=== PATIENT | male | born 1955 | race Caucasian/White ===

== ENCOUNTER 2018-07-26 11:48 | Observation (INO) | payer SELFPAY ==
--- NOTE | 2018-07-26 12:28 | ED.PDOC ---
History of Present Illness - General Chief Complaint: Cardiovascular Problem Stated Complaint: Elevated heart rate Time Seen by Provider: 07/26/18 12:09 Source: patient Exam Limitations: no limitations - History of Present Illness Initial Comments: Patient presents from clinic after it was found out that he was in atrial fibrillation. He denies any history of atrial fibrillation or any other medical history. He denies chest pain or dyspnea. He is an occasional smoker of cigarattes, averaging less than a pack per week. He is asymptomatic upon arrival to the E.D. The clinic visit was his first in 5 years and he went there without any physical complaints. Timing/Duration: unsure Severity: moderate Improving Factors: nothing Worsening Factors: nothing Associated Symptoms: denies symptoms Allergies/Adverse Reactions: Allergies NO KNOWN ALLERGY Allergy (Unverified 07/23/14 12:04) Home Medications: Ambulatory Orders Lisinopril & Hydrochlorothiazi [Lisinopril/Hctz 20-12.5 mg] 1 tab PO DAILY 07/23/14 Review of Systems - Review of Systems Constitutional: States: no symptoms reported EENTM: States: no symptoms reported Respiratory: States: no symptoms reported Cardiology: States: see HPI Gastrointestinal/Abdominal: States: no symptoms reported Genitourinary: States: no symptoms reported Musculoskeletal: States: no symptoms reported Skin: States: no symptoms reported Neurological: States: no symptoms reported Endocrine: States: no symptoms reported Hematologic/Lymphatic: States: no symptoms reported Past Medical History (General) - Patient Medical History Hx Congestive Heart Failure: No Hx Diabetes: No Family Medical History - Family History Father Family History: No Known Living Status: Physical Exam - Physical Exam General Appearance: Alert Eye Exam: bilateral normal Ears, Nose, Throat: normal ENT inspection Neck: non-tender, full range of motion, supple Respiratory: lungs clear, normal breath sounds Cardiovascular/Chest: normal peripheral pulses, tachycardia, irregularly irregular Gastrointestinal/Abdominal: normal bowel sounds, non tender, soft Back Exam: normal inspection, no CVA tenderness Neurologic: no motor/sensory deficits, alert, normal mood/affect, oriented x 3 Skin Exam: normal color Lymphatic: no adenopathy Progress - Progress Progress: 07/26/18 16:14 Laboratory Tests 07/26/18 07/26/18 07/26/18 12:10 12:10 12:10 WBC 6.1 RBC 4.73 Hgb 15.9 Hct 47.4 MCV 100.1 H MCH 33.7 H MCHC 33.6 RDW 13.7 Plt Count 115 L MPV 10.3 Absolute Neuts (auto) 4.00 Absolute Lymphs (auto) 1.30 Absolute Monos (auto) 0.80 Absolute Eos (auto) 0.00 Absolute Basos (auto) 0.10 Neutrophils % 64.6 Lymphocytes % 21.5 Monocytes % 12.5 H Eosinophils % 0.6 L Basophils % 0.8 Normal RBC Morphology Plts poonam decreased PT 10.3 INR 1.03 PTT (SP) 28.9 D-Dimer, Quantitative Sodium 134 L Potassium 4.1 Chloride 101 Carbon Dioxide 21 Anion Gap 16.1 BUN 18 Creatinine 0.76 BUN/Creatinine Ratio 23.7 H Random Glucose 108 H Serum Osmolality 270.7 L Calcium 8.9 Magnesium Total Bilirubin 1.0 AST 42 ALT 36 Alkaline Phosphatase 81 Creatine Kinase 115 CK-MB (CK-2) 4.5 H CK-MB (CK-2) % 3.91 H Troponin I < 0.02 B-Natriuretic Peptide 163.0 H Serum Total Protein 7.8 Albumin 4.4 Globulin 3.4 Albumin/Globulin Ratio 1.3 TSH Thyroxine (T4) Urine Color Urine Appearance Urine pH Ur Specific Roach Urine Protein Urine Glucose (UA) Urine Ketones Urine Blood Urine Nitrite Urine Bilirubin Urine Urobilinogen Ur Leukocyte Esterase Urine RBC Urine WBC Ur Epithelial Cells Urine Bacteria Urine Opiates Screen Urine Barbiturates Ur Phencyclidine Scrn U Amphetamin/Meth Scrn U Benzodiazepines Scrn U Cocaine Metab Screen U Cannabinoids Screen 07/26/18 07/26/18 07/26/18 12:10 12:10 12:30 WBC RBC Hgb Hct MCV MCH MCHC RDW Plt Count MPV Absolute Neuts (auto) Absolute Lymphs (auto) Absolute Monos (auto) Absolute Eos (auto) Absolute Basos (auto) Neutrophils % Lymphocytes % Monocytes % Eosinophils % Basophils % Normal RBC Morphology PT INR PTT (SP) D-Dimer, Quantitative 0.31 Sodium Potassium Chloride Carbon Dioxide Anion Gap BUN Creatinine BUN/Creatinine Ratio Random Glucose Serum Osmolality Calcium Magnesium 1.8 Total Bilirubin AST ALT Alkaline Phosphatase Creatine Kinase CK-MB (CK-2) CK-MB (CK-2) % Troponin I B-Natriuretic Peptide Serum Total Protein Albumin Globulin Albumin/Globulin Ratio TSH 1.75 Thyroxine (T4) 8.81 Urine Color Urine Appearance Urine pH Ur Specific Roach Urine Protein Urine Glucose (UA) Urine Ketones Urine Blood Urine Nitrite Urine Bilirubin Urine Urobilinogen Ur Leukocyte Esterase Urine RBC Urine WBC Ur Epithelial Cells Urine Bacteria Urine Opiates Screen Urine Barbiturates Ur Phencyclidine Scrn U Amphetamin/Meth Scrn U Benzodiazepines Scrn U Cocaine Metab Screen U Cannabinoids Screen 07/26/18 07/26/18 12:47 12:50 WBC RBC Hgb Hct MCV MCH MCHC RDW Plt Count MPV Absolute Neuts (auto) Absolute Lymphs (auto) Absolute Monos (auto) Absolute Eos (auto) Absolute Basos (auto) Neutrophils % Lymphocytes % Monocytes % Eosinophils % Basophils % Normal RBC Morphology PT INR PTT (SP) D-Dimer, Quantitative Sodium Potassium Chloride Carbon Dioxide Anion Gap BUN Creatinine BUN/Creatinine Ratio Random Glucose Serum Osmolality Calcium Magnesium Total Bilirubin AST ALT Alkaline Phosphatase Creatine Kinase CK-MB (CK-2) CK-MB (CK-2) % Troponin I B-Natriuretic Peptide Serum Total Protein Albumin Globulin Albumin/Globulin Ratio TSH Thyroxine (T4) Urine Color Yellow Urine Appearance Clear Urine pH 6.5 Ur Specific Roach 1.015 Urine Protein Negative Urine Glucose (UA) Negative Urine Ketones Negative Urine Blood Negative Urine Nitrite Negative Urine Bilirubin Negative Urine Urobilinogen 0.2 Ur Leukocyte Esterase Negative Urine RBC 0 Urine WBC 0 Ur Epithelial Cells 0 Urine Bacteria 0 Urine Opiates Screen Negative Urine Barbiturates Negative Ur Phencyclidine Scrn Negative U Amphetamin/Meth Scrn Negative U Benzodiazepines Scrn Negative U Cocaine Metab Screen Negative U Cannabinoids Screen Negative No evidence of acute RI. The patient's heart rate came down to the 70s with Cardizem 10 mg IV x one followed by 15 mg IV x one. He stayed at an irregular rhythm but normal rate for about an hour but then started to trend up again. I spoke with Dr. Garland and it was mutually decided to give one more bolus of Ca rdizem and admit the patient for transition to oral medication and anticoagulation. The patient was agreeable to staying overnight. Departure - Departure Clinical Impression: Atrial fibrillation Disposition: Admit Patient Condition: Good Departure Forms: ED Discharge - Pt. Copy, Patient Portal Self Enrollment Instructions: DI for Chest Pain Diet: resume usual diet Activity: increase activity as tolerated Referrals: Pipo Garland MD [Primary Care Provider] - 1-2 Weeks Home Medications: Ambulatory Orders Lisinopril & Hydrochlorothiazi [Lisinopril/Hctz 20-12.5 mg] 1 tab PO DAILY 07/23/14
[2018-07-26] MEDS ORDERED: diltiaZEM DRIP 125 MG in SODIUM CHLORIDE 0.9% 100ML 100 ML IVPB SCH (12:30)
--- NOTE | 2018-07-26 12:53 | RAD ---
EXAM DESCRIPTION: Chest,2 Views CLINICAL HISTORY: 62 years Male, tachycardia COMPARISON: 16 July 2014 TECHNIQUE: PA/lateral FINDINGS: Cardiac megaly is evident. The lungs are free of acute infiltrate. No pleural fluid is seen. Degenerative changes are seen in the thoracic spine. IMPRESSION: Cardiomegaly is observed without evidence of congestive heart failure. Electronically signed by: Jonathan Ramos MD 07/26/2018 12:50 PM BIOLOGICAL SCIENCE TECHNICIAN
--- NOTE | 2018-07-26 17:42 | HP ---
SUPERVISING PHYSICIAN: Pipo Garland M.D. CHIEF COMPLAINT: Routine checkup. HISTORY OF PRESENT ILLNESS: This is a 62 year-old male patient who has no significant medical history. He actually went in to see his primary care physician for routine lab work and checkup. Dr. Garland found the patient to be in rapid heart rate and an EKG was done and he was in atrial fibrillation with rapid ventricular response. The patient said he had no symptoms. He had no diaphoresis. No chest pain. No shortness of breath. He actually lifted weights this morning prior to going to his doctor's appointment and was sent to the Emergency Room by Dr. Garland. He does smoke occasionally but he smokes less than 1 pack per week. He was asymptomatic when he got to the Emergency Room. Vital signs on admission to the Emergency Room showed temperature 98.3 with heart rate 144, blood pressure 161/117. It came down later to 148/89. Respiratory rate 20, O2 sat 98% on room air. His lab had a CBC that was unremarkable with PT of 10.3, INR 1.03, PTT 28.9 and D-dimer 0.31. Sodium was slightly low at 134. His remaining electrolytes were within normal limits. Glucose was slightly high at 108. BNP was 163 and troponin was less than 0.02. TSH was 1.75, T4 was 8.81. Urinalysis was unremarkable. Urine drug screen was negative. Chest x-ray was completed and shows cardiomegaly observed without evidence of congestive heart failure. He received several doses of Cardizem IV in the Emergency Room. His rate was brought down to the 90s to 110s. He was placed in observation in the hospital. PAST MEDICAL HISTORY: 1. Hyperlipidemia. 2. Hypertension. PAST SURGICAL HISTORY: 1. Cataract surgery times 2. 2. Vasectomy. OUTPATIENT MEDICATIONS: 1. Lisinopril 20 mg at h.s. ALLERGIES: NO KNOWN DRUG ALLERGIES. FAMILY HISTORY: Positive for type 2 diabetes. SOCIAL HISTORY: He is self employed. He is . He has 2 children. He smokes less than 1 pack of cigarettes weekly. He drinks alcohol frequently, 3 to 4 drinks 3 to 4 nights per week. REVIEW OF SYSTEMS: Completely negative. PHYSICAL EXAMINATION: VITAL SIGNS: Temperature 97.8, heart rate is running between 84 and 96. Blood pressure 130/76, respiratory rate 18, O2 sat 97% on room air. GENERAL: This is a 62 year-old male patient who is lying in his hospital bed. He is in no acute distress. HEENT: Normocephalic and atraumatic. Pupils are equal and reactive. Oropharynx is clear. NECK: Supple without mass. There is no discernible jugular venous distention. RESPIRATORY: Essentially clear to auscultation bilaterally. CARDIAC: Tachycardic rate, irregular rhythm. Atrial fibrillation on the front desk monitor. GASTROINTESTINAL: Abdomen is soft, nondistended, non-tender. Bowel sounds are positive. EXTREMITIES: No clubbing, cyanosis or edema. NEUROLOGIC: He is awake, alert and oriented times three. Cranial nerves II-XII are grossly intact. LABORATORY: Labs and films are as per the History of Present Illness. ASSESSMENT: 1. Atrial fibrillation, new onset with no previous cardiac history. 2. Hypertension. 3. Hyperlipidemia. PLAN: We will place the patient in observation. I have given him an additional dose of IV Cardizem 10 mg and he will be put on immediate release Cardizem 60 mg every 6 hours. I have also put him on a PPI for ulcer prophylaxis. He has been put on Eliquis 5 mg b.i.d. for anticoagulation. I have consulted Dr. Escobar to see the patient tomorrow. Upon discharge we will go with Dr. Escobar' recommendations. I have done routine lab for in the morning. Will continue to monitor him closely and follow as needed. [facility][id number] [facility]
[2018-07-26] MEDS ORDERED: NITROGLYCERIN 0.4 MG 25 EA TAB SL PRN (18:07)
[2018-07-26] MEDS ORDERED: ACETAMINOPHEN 325 MG TAB PO PRN (18:07)
[2018-07-26] MEDS ORDERED: SODIUM CHLORIDE 0.9% (FLUSH) 10 ML SYG IV PRN (18:07)
[2018-07-26] MEDS ORDERED: diltiaZEM HCL TAB 30 MG TAB ONE (18:17)
[2018-07-26] MEDS ORDERED: diltiaZEM HCL TAB 30 MG TAB PO ONE (18:28)
[2018-07-26] MEDS ORDERED: diltiaZEM HCL TAB 30 MG TAB PO SCH (18:30)
[2018-07-26] MEDS ORDERED: IV SET AND CAP CHANGE INJ INJ SCH (18:30)
[2018-07-26] MEDS: APIXABAN 2.5 MG TAB PO SCH (21:19)
[2018-07-26] MEDS: SODIUM CHLORIDE 0.9% (FLUSH) 10 ML SYG IV SCH (21:19)
[2018-07-27] MEDS: diltiaZEM HCL TAB 30 MG TAB PO SCH ×3 (00:26→12:30)
[2018-07-27] MEDS: PANTOPRAZOLE SODIUM IV 40 MG VIAL IV SCH (06:29)
[2018-07-27] MEDS: APIXABAN 2.5 MG TAB PO SCH ×2 (08:46→20:37)
[2018-07-27] MEDS: SODIUM CHLORIDE 0.9% (FLUSH) 10 ML SYG IV SCH ×2 (08:48→20:37)
[2018-07-27] MEDS ORDERED: METOPROLOL TARTRATE 50 MG TAB PO SCH (12:30)
--- NOTE | 2018-07-27 16:28 | PN ---
DATE: 07/27/18 SUPERVISING PHYSICIAN: Pipo Garland M.D. SUBJECTIVE: The patient is lying in bed watching television. He had seen Dr. Escobar earlier and we went over Dr. Escobar' plan for him. He had no complaints of nausea, vomiting, diarrhea, constipation, chest pain or shortness of breath. OBJECTIVE: VITAL SIGNS: Temperature 97.8, heart rate has been running from 95 to 107. Blood pressure 111/70, respiratory rate 18, O2 sat 98% on room air. RESPIRATORY: Essentially clear to auscultation bilaterally. CARDIAC: Regular rate and at times he has a slightly tachycardic rate, irregular rhythm. Atrial fibrillation is on the monitoring manager. GASTROINTESTINAL: Abdomen is soft, nondistended, non-tender. Bowel sounds are positive. NEUROLOGIC: He is awake, alert and oriented times three. LABORATORY: CBC is unremarkable with electrolytes that are basically within normal limits. Bilirubin is elevated at 1.3. Otherwise his liver enzymes are within normal limits. All other labs and films have been reviewed via the EMR. ASSESSMENT: 1. Atrial fibrillation, new onset with no previous cardiac history. 2. Hypertension. 3. Hyperlipidemia. PLAN: We will continue present supportive care. Dr. Escobar has seen the patient and examined him. He recommended that we put him on 240 mg of Cardizem CD as well as 50 mg of Metoprolol b.i.d., and recommended that he stay overnight and we would watch his heart rhythm. When Dr. Escobar saw him his heart rate was in the 1-teens and has now come down to the 70s and 80s. We will monitor the heart rate overnight. He has a followup appointment with Dr. Escobar next to have an echocardiogram and a stress test in [place]. I will also have him followup with Dr. Garland next week. Will hopefully discharge in the morning. #[id number] [facility]
[2018-07-27] MEDS: METOPROLOL TARTRATE 25 MG TAB PO SCH (20:40)
[2018-07-28] MEDS: PANTOPRAZOLE SODIUM IV 40 MG VIAL IV SCH (06:07)
[2018-07-28 06:28] VITALS: BP 113/76; TEMP 98.6
[2018-07-28] MEDS: APIXABAN 2.5 MG TAB PO SCH (08:18)
[2018-07-28] MEDS: SODIUM CHLORIDE 0.9% (FLUSH) 10 ML SYG IV SCH (08:19)
[2018-07-28] MEDS: METOPROLOL TARTRATE 25 MG TAB PO SCH (08:19)
[2018-07-28 09:20] VITALS: O2SAT 99
--- NOTE | 2018-07-29 21:47 | DS ---
SUPERVISING PHYSICIAN: Pipo Garland M.D. DISCHARGE DIAGNOSIS: 1. Atrial fibrillation, new onset with no previous cardiac history. 2. Hypertension. 3. Hyperlipidemia. HISTORY OF PRESENT ILLNESS: This is a 62 year-old male patient who was seeing his doctor, Dr. Pipo Garland, for routine lab work and checkup. He really had no significant medical history, although he has not seen his primary care physician in about 5 years. During his exam, Dr. Garland found the patient to be in rapid heart rate and an EKG was done and he was in atrial fibrillation with rapid ventricular response. The patient said he had no symptoms. He had no diaphoresis. No chest pain. No shortness of breath. He actually lifted weights the morning prior to going to his doctor's appointment and was sent to the Emergency Room by Dr. Garland. He does smoke occasionally but he smokes less than 1 pack per week. He was asymptomatic when he got to the Emergency Room. Vital signs on admission to the Emergency Room showed temperature 98.3 with heart rate 144, blood pressure 161/117. His blood pressure came down some later to 148/89. Respiratory rate 20, O2 sat 98% on room air. Lab showed a CBC that was unremarkable as well as a PT, PTT and D-dimer that were within normal limits. Sodium was slightly low at 134. His remaining electrolytes were within normal limits. Glucose was slightly high at 108. BNP was 163 and troponin was less than 0.02. TSH was 1.75, T4 was 8.81. Urinalysis was unremarkable. Urine drug screen was negative. Chest x-ray was completed and shows cardiomegaly observed without evidence of congestive heart failure. He received several doses of Cardizem IV in the Emergency Room. His rate was brought down to the 90s to 110s. He was placed in observation in the hospital. HOSPITAL COURSE: He was admitted for observation to the hospital. He received an additional dose of Cardizem and was put on immediate release Cardizem 60 mg every 6 hours. He was also on a PPI for ulcer prophylaxis and started on Eliquis 5 mg b.i.d. for anticoagulation. Dr. Escobar was consulted. The second day of his hospital stay he was seen by Dr. Escobar. Dr. Escobar recommended that his medications be changed to Cardizem CD 240 mg daily as well as placing him on Metoprolol tartrate 50 mg b.i.d. Because his heart rate still was going up into the 120s, he also recommended that he be kept overnight. During the next 24 hours his heart rate went down as low as 50 and his blood pressure was around 111/70, and his Metastatic was changed to 25 mg b.i.d. He had no complaints of chest pains during his hospital stay. His final vital signs were temperature 98.6, heart rate 68. He was still in atrial fibrillation. His blood pressure was 113/76, respiratory rate was 20, O2 sat was 96% on room air. He will be discharged in stable condition. LABORATORY: His second CBC was also unremarkable. Total bilirubin did go up to 1.3 and on the date of discharge was 1.5. Troponin was less than 0.02 during his hospital stay. Electrolytes were unremarkable except he did have a glucose that was high at 121, BUN 20 with creatinine 0.90. RADIOLOGY: Chest x-ray is as per History of Present Illness. DISCHARGE PLAN: The patient will be discharged home in stable condition. He is to eat a diet that contains a good source of protein with lots of fruits and vegetables. He is to increase his activity as tolerated. He is to continue taking his Eliquis, Diltiazem and Metoprolol. He is to call Dr. Garland' office on Monday to get a hospital followup. He is to call Dr. Garland' office or return to the hospital for any problems or complications. DISCHARGE MEDICATIONS: 1. Eliquis 5 mg b.i.d. 2. Cardizem LA 240 mg daily. 3. Metoprolol tartrate 25 mg b.i.d. #[id number] [facility]
== END 2018-07-28 09:15 | disposition home or self-care (01) ==
LOC: ER 11:48 → MS 17:33
PROVIDERS: ADMIT Nurse Practitioner Acute Care; ATTEND Nurse Practitioner Acute Care
DX: I48.91 Unspecified atrial fibrillation (principal); I11.9 Hypertensive heart disease without heart failure; E78.5 Hyperlipidemia, unspecified; F17.210 Nicotine dependence, cigarettes, uncomplicated; E87.1 Hypo-osmolality and hyponatremia; Z79.899 Other long term (current) drug therapy
CPT/HCPCS: 96374; 96375; 96376 ×2; 85379; 82553; 80053 ×3; 80307; 36415 ×2; 81001; 85025 ×2; 82550; 83735 ×3; 85730; 85610; 84443; 84436; 84484; 83880; 71046; 94760 ×3; 99406; 99285; 93005; G0378